=== PATIENT | male | born 1955 | race Caucasian/White ===

== ENCOUNTER 2019-05-21 11:42 | Emergency (ER) | payer MEDICAID ==
[~2019-05-21] VITALS: Ht 167.6 cm; Wt 80.5 kg
--- NOTE | 2019-05-21 11:57 | NUR ---
MD AT BEDSIDE TO ASSESS PT
--- NOTE | 2019-05-21 12:05 | NUR ---
PT TO XRAY
[2019-05-21] MEDS ORDERED: SODIUM CHLORIDE FLUSH 10ML SYR IVF ONE (12:30)
[2019-05-21] MEDS ORDERED: MORPHINE SULFATE 4 MG/ML, 1ML IVPush PRN (12:30)
[2019-05-21] MEDS ORDERED: ONDANSETRON 2MG/ML, 2ML IVPush ONE (12:30)
[2019-05-21] MEDS ORDERED: ONDANSETRON 2MG/ML, 2ML ONE (12:53)
[2019-05-21] MEDS ORDERED: MORPHINE SULFATE 4 MG/ML, 1ML ONE (12:53)
[2019-05-21] MEDS ORDERED: PROPOFOL 10 MG/ML, 20ML IV ONE (13:30)
--- NOTE | 2019-05-21 13:37 | NUR ---
MD AT BEDSIDE FOR CONSENT AND CONSCIOUS SEDATION TO REDUCE L SHOULDER.
[2019-05-21 13:38] VITALS: BP 142/60
[2019-05-21] MEDS ORDERED: PROPOFOL 10 MG/ML, 20ML ONE (13:47)
--- NOTE | 2019-05-21 13:58 | NUR ---
SUCESSFUL REDUCTION OF L SHOULDER PERFORMED.
[2019-05-21] MEDS ORDERED: PROPOFOL 10 MG/ML, 20ML IVPush ONE (14:00)
--- NOTE | 2019-05-21 14:10 | NUR ---
PT BACK TO BASELINE AT THIS TIME, PT FOLLOWING COMMANDS AND ABLE TO INTERACT WITH STAFF APPROPRIATELY. VSS, NADN, ABLE TO MAINTAIN O2 SAT WITHOUT SUPPLEMENTAL O2
--- NOTE | 2019-05-21 14:48 | NUR ---
AT BEDSIDE TO DISCUSS POC W/ PT VIA CHEMIST PHYSICAL.
== END 2019-05-21 15:10 | disposition home or self-care (01) ==
LOC: ED 14:30
DX: S43.102A Unspecified dislocation of left acromioclavicular joint, initial encounter (principal); W18.30XA Fall on same level, unspecified, initial encounter; Y93.89 Activity, other specified; Y92.89 Other specified places as the place of occurrence of the external cause; Y99.8 Other external cause status
CPT/HCPCS: 23650; 73030; 96374; 96375; 99285; J2270; J2405